=== PATIENT | female | born 1975 | race Caucasian/White ===

== ENCOUNTER 2020-09-13 11:25 | Emergency (ER) | payer MEDICAID ==
[~2020-09-13] VITALS: Ht 165.1 cm; Wt 81.8 kg
[2020-09-13 11:39] VITALS: BP 136/87
[2020-09-13] MEDS ORDERED: orphenadrine citrate 60mg/2ml inj. IM ONE (12:55)
[2020-09-13] MEDS ORDERED: ketorolac tromethamine 15mg/ml inj. IM ONE (12:55)
[2020-09-13] MEDS ORDERED: IBUP-1984 PO (13:00)
[2020-09-13] MEDS ORDERED: ORPH100T2 PO (13:00)
== END 2020-09-13 13:25 | disposition home or self-care (01) ==
LOC: ER 11:27
DX: G89.29 Other chronic pain (principal); M54.40 Lumbago with sciatica, unspecified side; Z79.899 Other long term (current) drug therapy
CPT/HCPCS: 96372; 99284; J1885; J2360

== ENCOUNTER 2020-09-17 08:35 | Emergency (ER) | payer MEDICAID ==
[~2020-09-17] VITALS: Ht 165.1 cm; Wt 81.8 kg
[~2020-09-17 08:35] MED LIST: IBUP-1984 PO; ORPH100T2 PO
[2020-09-17] MEDS ORDERED: gabapentin 300mg capsule PO ONE (09:50)
[2020-09-17] MEDS ORDERED: LIDOcaine 5% patch TP STA (09:50)
[2020-09-17] MEDS ORDERED: LIDO700A32 TOP (10:00)
[2020-09-17] MEDS ORDERED: GABA300C PO (10:00)
[2020-09-17] MEDS ORDERED: triamcinolone acetonide 40mg/ml inj IM ONE (10:05)
[2020-09-17 10:26] VITALS: BP 143/89
== END 2020-09-17 10:33 | disposition home or self-care (01) ==
LOC: ER 08:36
DX: M54.41 Lumbago with sciatica, right side (principal); M54.89 Other dorsalgia; Z79.899 Other long term (current) drug therapy
CPT/HCPCS: 96372; 99283; J3301